=== PATIENT | female | born 1980 | race Caucasian/White ===

== ENCOUNTER → 2020-04-17 13:40 | Outpatient (BNVA) | payer BC, OTHER, SELFPAY | PROVIDERS: Visit Provider Nurse Practitioner | DX: M54.9 Dorsalgia, unspecified (principal) | CPT/HCPCS: 81000 ==

== ENCOUNTER 2020-04-27 20:13 | Emergency (ER) | payer OTHER, BC, SELFPAY ==
[2020-04-27 20:17] VITALS: BP 147/91; PULSE 63; RESP 16; TEMP 36.6; O2SAT 100; BMI 31.1
[2020-04-27 20:41] LABS: Add Urine Microscopic? NO
[2020-04-27 21:07] LABS: Glucose Urine UA Norm (Normal); Protein Urine Neg (Negative); Specific Gravity, Urine 1.005 (1.005-1.030); Urine Appearance Clear (CLEAR); Urine Color Straw (Yellow); pH Urine 7 (5-7)
[2020-04-27 21:08] LABS: Bilirubin Urine Neg (Negative); Blood Urine Neg (Negative); Ketones Urine Negative (Negative); Leukocyte Esterase Urine Negative (Negative); Nitrate Urine Negative (Negative); Urobilinogen Urine Norm (Negative)
--- NOTE | 2020-04-27 22:14 | ECG_ITS ---
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 Measurements Intervals [place] Rate: 57 P: 46 NV: 155 QRS: 108 QRSD: 89 T: 26 QT: 411 QTc: 402 Interpretive Statements SINUS BRADYCARDIA MARKED RIGHT AXIS DEVIATION [QRS AXIS > 100] No previous ECG available for comparison Electronically Signed On 04-28-2020 20:01:16 BLOCK GREASER by Siddharth Bonilla M.D. [id number]
--- NOTE | 2020-04-27 22:18 | ED_ITS ---
HPI - Chest Pain General: Chief Complaint: Chest Pain Stated Complaint: NAUSEA, UPPER ABD PAIN Time Seen by Provider: 04/27/20 22:12 Source: patient Mode of arrival: ambulatory Limitations: no limitations History of Present Illness: HPI narrative: 39-year-old female who states she has been having epigastric bowel pain over the last 3 to 4 weeks. She states that her primary care doctor diagnosed her with a likely ulcer and started on Protonix sulcal fate but states that her pain worsened tonight. She is been on those meds for roughly 1 week. She states it is a burning pain in her abdomen that radiates to her chest. She has had a cholecystectomy in the past. States pain is currently 3 out of 10. Denies any fever or vomiting. She does have nausea. Denies any worsening or improving factors. Associated symptoms: Reports abdominal pain and nausea; Deny dyspnea or fever(s) Review of Systems Const: Denies: fever(s), chills, body aches or change in appetite Eyes: Denies: blurry vision or eye discomfort ENMT: Denies: throat pain or dental pain Card: Denies: chest pain Resp: Denies: dyspnea GI: Reports: abdominal pain and nausea : Denies: dysuria Musc: Denies: neck pain or back pain Skin/Breast: Denies: rash Neuro: Denies: headache(s) Psych: Denies: depression Gino/Lymph: Denies: easy bruising All/Imm: Denies: urticaria PFS ED PFSH: Social History Smoking and tobacco status: former smoker Physical Exam Const: COMMON NORMALS: no acute distress, patient oriented x3 and healthy appearing HENMT: COMMON NORMALS: normocephalic and atraumatic HEAD & SCALP: normocephalic and atraumatic Eye: COMMON NORMALS: Equal, round and reactive pupils present and EOMs intact bilaterally PUPIL: Yes Equal, round and reactive pupils present Neck/C-Spine: COMMON NORMALS: full ROM and supple Chest: COMMONS NORMALS: normal inspection of the chest and normal palpation of entire chest wall Resp: COMMON NORMALS: normal respiratory effort, No retractions, No use of accessory muscles and clear to auscultation bilaterally AUSCULTATION: clear to auscultation bilaterally Cardio: COMMON NORMALS: regular rate, regular rhythm and No murmurs present (Cardio) RATE: regular rate RHYTHM: regular rhythm GI: COMMON NORMALS: Normal to inspection, nondistended, normoactive bowel sounds present, Soft to palpation, non-tender and no masses PALPATION: Yes Soft to palpation Extremity: COMMON NORMALS: normal to inspection and full ROM Neuro: COMMON NORMALS: patient oriented x3, moves all extremities and no focal motor deficits Psych: COMMON NORMALS: mental status grossly normal, Normal thought process present and cooperative THOUGHT PROCESS: Normal thought process present Skin: COMMON NORMALS: no rashes or lesions noted and no wounds GENERAL SKIN EXAM: no rashes or lesions noted Course Vital Signs: Vital signs: Vital Signs Temperature 97.9 F 04/27/20 20:17 Pulse Rate 63 04/27/20 20:17 Respiratory Rate 16 04/27/20 20:17 Blood Pressure 147/91 04/27/20 20:17 Pulse Oximetry 100 04/27/20 20:17 MDM - Chest Pain MDM Narrative: Medical decision making narrative: Nausea now with abdominal pain likely from gastritis. She is to continue her medicines and I will start her on Zofran.Lisa presents here with we will have her follow-up with surgery has if she continues to have pain she will need an EGD. She understands agrees to plan. Lab Data: Labs: Lab Results 04/27/20 04/27/20 04/27/20 Range/Units 20:32 20:32 22:10 WBC 8.0 (4.0-10.0) 10^3/ uL RBC 5.11 (4.1-5.3) 10^6/u L Hgb 15.3 (11.5-15.3) g/dL Hct 45.0 (37.0-47.0) % MCV 88.1 (81-99) fL MCH 29.9 (28.0-34.0) pg MCHC 34.0 (30.0-36.0) g/dL RDW 12.7 (12.1-15.1) % Plt Count 387 (130-400) 10^3/c mm MPV 8.5 (7.4-10.4) fL Neut % (Auto) 62.4 % Lymph % (Auto) 28.2 % Jackson % (Auto) 8.2 % Eos % (Auto) 0.5 % Baso % (Auto) 0.5 % Neut # (Auto) 4.99 (1.8-7.7) 10^3/u L Lymph # (Auto) 2.3 (0.8-4.8) 10^3/u L Jackson # (Auto) 0.7 (0.2-0.9) 10^3/u L Eos # (Auto) 0.0 (0.0-0.8) 10^3/u L Baso # (Auto) 0.0 (0.0-0.1) 10^3/u L Nucleated RBC % (a uto) 0 % Nucleated RBCs # 0.0 /100WBC Sodium (136-145) mmol/L Potassium (3.5-5.1) mmol/L Chloride (98-107) mmol/L Carbon Dioxide (22-29) mmol/L Anion Gap (5-19) BUN (6-20) mg/dL Creatinine (0.5-0.9) mg/dL GFR Calculation (90-130) mL/min Glucose (65-115) mg/dL Calculated Osmolal ity (285-295) mOsm/k g Calcium (8.5-10.5) mg/dL Total Bilirubin (0.15-1.2) mg/dL AST (0-32) U/L ALT (0-33) U/L Alkaline Phosphata se (35-105) IU/L Total Protein (6.6-8.7) g/dL Albumin (3.5-5.2) g/dL Globulin (1.3-4.6) g/dL Lipase (13-60) U/L HCG, Qual Negative (Negative) Urine Color Straw (Yellow) Urine Appearance Clear (CLEAR) Urine pH 7 (5-7) Ur Specific Gravit y 1.005 (1.005-1.030) Urine Protein Neg (Negative) Urine Glucose (UA) Norm (Normal) Urine Ketones Negative (Negative) Urine Blood Neg (Negative) Urine Nitrate Negative (Negative) Urine Bilirubin Neg (Negative) Urine Urobilinogen Norm (Negative) mg/dL Ur Leukocyte Chery ase Negative (Negative) 04/27/20 Range/Units 22:10 WBC (4.0-10.0) 10^3/ uL RBC (4.1-5.3) 10^6/u L Hgb (11.5-15.3) g/dL Hct (37.0-47.0) % MCV (81-99) fL MCH (28.0-34.0) pg MCHC (30.0-36.0) g/dL RDW (12.1-15.1) % Plt Count (130-400) 10^3/c mm MPV (7.4-10.4) fL Neut % (Auto) % Lymph % (Auto) % Jackson % (Auto) % Eos % (Auto) % Baso % (Auto) % Neut # (Auto) (1.8-7.7) 10^3/u L Lymph # (Auto) (0.8-4.8) 10^3/u L Jackson # (Auto) (0.2-0.9) 10^3/u L Eos # (Auto) (0.0-0.8) 10^3/u L Baso # (Auto) (0.0-0.1) 10^3/u L Nucleated RBC % (a uto) % Nucleated RBCs # /100WBC Sodium 141 (136-145) mmol/L Potassium 4.0 (3.5-5.1) mmol/L Chloride 101 (98-107) mmol/L Carbon Dioxide 31 H (22-29) mmol/L Anion Gap 13.0 (5-19) BUN 12 (6-20) mg/dL Creatinine 0.9 (0.5-0.9) mg/dL GFR Calculation 70.1 L (90-130) mL/min Glucose 96 (65-115) mg/dL Calculated Osmolal ity 292 (285-295) mOsm/k g Calcium 9.0 (8.5-10.5) mg/dL Total Bilirubin 0.2 (0.15-1.2) mg/dL AST 17 (0-32) U/L ALT 26 (0-33) U/L Alkaline Phosphata se 65 (35-105) IU/L Total Protein 7.4 (6.6-8.7) g/dL Albumin 4.2 (3.5-5.2) g/dL Globulin 3.2 (1.3-4.6) g/dL Lipase 17 (13-60) U/L HCG, Qual (Negative) Urine Color (Yellow) Urine Appearance (CLEAR) Urine pH (5-7) Ur Specific Gravit y (1.005-1.030) Urine Protein (Negative) Urine Glucose (UA) (Normal) Urine Ketones (Negative) Urine Blood (Negative) Urine Nitrate (Negative) Urine Bilirubin (Negative) Urine Urobilinogen (Negative) mg/dL Ur Leukocyte Chery ase (Negative) Imaging Data^: CT Abd/Pel: Attestation: I personally reviewed and interpreted this imaging study as follow s: Radiologist's impression: [facility] [address] [place] [address]. [place] [address] CT Scan Report Signed Patient: Lisa Centeno Unit #: [id number] : 1980 Age/Sex: 39 / F ADM Date: 04/27/20 Loc: ER Room/Bed: Attending Dr: Ordering Provider/Ordering MD: Jayson Ruffin MD Date of Service: 04/27/20 Procedure(s): CT abdomen pelvis w con* [id number] Accession Number(s): [id number] Report Number: [id number] PROCEDURE INFORMATION: Exam: CT Abdomen And Pelvis With Contrast Exam date and time: 04/27/2020 11:15 PM Age: 39 years old Clinical indication: Abdominal pain; Localized; Upper; Prior surgery; Surgery type: Gb, hyst; Patient HX: Persistent epigastric pain x 1 month; Additional info: Abd pain TECHNIQUE: Imaging protocol: Computed tomography of the abdomen and pelvis with contrast. Radiation optimization: All CT scans at this facility use at least one of these dose optimization techniques: automated exposure control; mA and/or kV adjustment per patient size (includes targeted exams where dose is matched to clinical indication); or iterative reconstruction. Contrast material: OMNI 300; Contrast volume: 95 ml; Contrast route: INTRAVENOUS (IV); COMPARISON: No relevant prior studies available. RADIATION DOSE METRICS: Total DLP (mGy-cm): 1049.43 FINDINGS: Liver: Normal. No mass. Gallbladder and bile ducts: Cholecystectomy. Nondilated biliary system. Pancreas: Normal. No ductal dilation. Spleen: Normal. No splenomegaly. Adrenal glands: Normal. No mass. Kidneys and ureters: Normal. No hydronephrosis. Stomach and bowel: No bowel wall thickening. No bowel loop dilation. No evidence of bowel perforation. Appendix: No evidence of appendicitis. Intraperitoneal space: Unremarkable. No free air. No significant fluid collection. Vasculature: Unremarkable. No abdominal aortic aneurysm. Lymph nodes: Unremarkable. No enlarged lymph nodes. Urinary bladder: Unremarkable as visualized. Reproductive: Hysterectomy. Cystic mass in the left adnexa 3.6 [address] transverse diameter. Simple CT features. Bones/joints: Unremarkable. No acute fracture. Soft tissues: Unremarkable. CT/CT abdomen pelvis w con* [id number] IMPRESSION: 1. Negative for acute pathology in the abdomen or pelvis. 2. Small cystic left adnexal mass. 3. No further imaging is recommended. (Reference: Maximilian) Discharge Plan Discharge Patient Disposition: Home Clinical Impression: Nausea Abdominal pain Qualifiers: Abdominal location: generalized Qualified Code(s): R10.84 - Generalized abdominal pain Condition: Stable Prescriptions: New ondansetron 4 mg tablet,disintegrating 4 mg PO Q6H PRN (Reason: nausea and vomiting) Qty: 14 RF: 0 No Action omeprazole 20 mg capsule,delayed release(DR/EC) 20 mg PO DAILY RF: 0 Hold Instructions: Doctor's Order Flovent Diskus 250 mcg/actuation blister with device 1 inh inhalation BID RF: 0 cyclobenzaprine 10 mg tablet 10 mg PO TID PRNRF: 0 albuterol sulfate 2.5 mg/0.5 mL solution for nebulization 10 mg inhalation Q4H PRNRF: 0 pantoprazole [Protonix] 40 mg tablet,delayed release (DR/EC) 40 mg PO DAILY Qty: 30 RF: 0 Discharge Orders: Discharge ED (Routine); Ordered 04/27/20 Ordered By: Jayson Ruffin Referrals: Marshall Garibay MD [Physician] - Discharge Diet: Advance as tolerated Discharge Activity: Resume usual activity Patient Instructions: Abdominal Pain (ED) Coding Level of Care Code ED Awning Frame Maker for Nisreen Fwd Exam Comprehensive
[2020-04-27 22:42] LABS: Basophils % 0.5 %; Eosinophils % 0.5 %; Hemoglobin 15.3 g/dL (11.5-15.3); Lymphocytes # 2.3 10^3/uL (0.8-4.8); Lymphocytes % 28.2 %; Mean Corpuscular Hemoglobin 29.9 pg (28.0-34.0); Mean Corpuscular Volume 88.1 fL (81-99); Mean Platelet Volume 8.5 fL (7.4-10.4); Monocytes # 0.7 10^3/uL (0.2-0.9); Monocytes % 8.2 %; Neutrophils # 4.99 10^3/uL (1.8-7.7); Neutrophils % 62.4 %; Nucleated Red Blood Cells % 0 %; Platelet Count 387 10^3/cmm (130-400); Red Blood Count 5.11 10^6/uL (4.1-5.3); Red Cell Distribution Width 12.7 % (12.1-15.1)
[2020-04-27 22:45] LABS: HCG Qualitative Urine. Negative (Negative)
[2020-04-27 22:51] VITALS: BP 148/86; PULSE 86; RESP 18; O2SAT 97
[2020-04-27] MEDS: ondansetron 2 mg/ML SDV 2 mL 4 MG IVP (22:52)
[2020-04-27] MEDS: lidocaine 2% viscous 15 ML, aluminum-mag hydrox-simethicon 30 ML, sucralfate oral liq 1 GM PO (22:52)
[2020-04-27 23:02] LABS: Alanine Aminotransferase 26 U/L (0-33); Albumin Level 4.2 g/dL (3.5-5.2); Alkaline Phosphatase 65 IU/L (35-105); Aspartate Amino Transferase 17 U/L (0-32); Blood Urea Nitrogen 12 mg/dL (6-20); Carbon Dioxide 31 mmol/L (22-29); Chloride 101 mmol/L (98-107); Globulin 3.2 g/dL (1.3-4.6); Glomerular Filtration Rate 70.1 mL/min (90-130); Glucose 96 mg/dL (65-115); Lipase 17 U/L (13-60); Osmolality Calculated 292 mOsm/kg (285-295); Sodium 141 mmol/L (136-145); Total Bilirubin 0.2 mg/dL (0.15-1.2); Total Protein 7.4 g/dL (6.6-8.7)
--- NOTE | 2020-04-27 23:12 | CTR_ITS ---
PROCEDURE INFORMATION: Exam: CT Abdomen And Pelvis With Contrast Exam date and time: 04/27/2020 11:15 PM Age: 39 years old Clinical indication: Abdominal pain; Localized; Upper; Prior surgery; Surgery type: Gb, hyst; Patient HX: Persistent epigastric pain x 1 month; Additional info: Abd pain TECHNIQUE: Imaging protocol: Computed tomography of the abdomen and pelvis with contrast. Radiation optimization: All CT scans at this facility use at least one of these dose optimization techniques: automated exposure control; mA and/or kV adjustment per patient size (includes targeted exams where dose is matched to clinical indication); or iterative reconstruction. Contrast material: OMNI 300; Contrast volume: 95 ml; Contrast route: INTRAVENOUS (IV); COMPARISON: No relevant prior studies available. RADIATION DOSE METRICS: Total DLP (mGy-cm): 1049.43 FINDINGS: Liver: Normal. No mass. Gallbladder and bile ducts: Cholecystectomy. Nondilated biliary system. Pancreas: Normal. No ductal dilation. Spleen: Normal. No splenomegaly. Adrenal glands: Normal. No mass. Kidneys and ureters: Normal. No hydronephrosis. Stomach and bowel: No bowel wall thickening. No bowel loop dilation. No evidence of bowel perforation. Appendix: No evidence of appendicitis. Intraperitoneal space: Unremarkable. No free air. No significant fluid collection. Vasculature: Unremarkable. No abdominal aortic aneurysm. Lymph nodes: Unremarkable. No enlarged lymph nodes. Urinary bladder: Unremarkable as visualized. Reproductive: Hysterectomy. Cystic mass in the left adnexa 3.6 cm transverse diameter. Simple CT features. Bones/joints: Unremarkable. No acute fracture. Soft tissues: Unremarkable. CT/CT abdomen pelvis w con* [id number] IMPRESSION: 1. Negative for acute pathology in the abdomen or pelvis. 2. Small cystic left adnexal mass. 3. No further imaging is recommended. (Reference: Maximilian) REFERENCES: Maximilian et al. Management of Incidental Adnexal Findings on CT and MRI: A White Paper of the ACR Incidental Findings Committee, J Am Martell Radiol. 2020 Apr;17(2):248-254. Radiation Dose CTDIVOL = (mGy): DLP = 1049.43 (mGy-cm)
[2020-04-27] MEDS: iohexol 300 mg/mL 100 mL Btl IV (23:26)
[2020-04-27 23:51] VITALS: BP 122/74; PULSE 81; RESP 18; O2SAT 98
[2020-04-28 00:36] VITALS: BP 137/86; PULSE 84; RESP 18; O2SAT 98
[2020-04-28 01:05] VITALS: BP 136/87; PULSE 84; RESP 18; O2SAT 98
--- NOTE | 2020-04-28 15:46 | DCPLANNER ---
senior project manager had message to schedule a follow up appointment for patient with general surgery. senior project manager emailed patients information to both Kaley and Alee at [facility] General Surgery. Patients information will be printed and reviewed. Clinic will call patient with appointment information.
--- NOTE | 2020-05-03 08:17 | DCPLANNER ---
Patient has a follow up appointment scheduled for , May 12, 2020 at 10:[address] Garibay at [facility] General Surgery. Clinic will call patient with appointment information.
--- NOTE | 2020-05-25 15:09 | DCPLANNER ---
Patients appointment scheduled for 05.12.20 was cancelled.
== END 2020-04-28 00:45 | disposition home or self-care (01) ==
PROVIDERS: Emergency Provider Emergency Medicine
DX: R11.0 Nausea (principal); R10.84 Generalized abdominal pain; Z87.891 Personal history of nicotine dependence
CPT/HCPCS: 74177; 80053; 81003; 81025; 83690; 85025; 93005; 96374; 99283; J2405; Q0169; Q9967